=== PATIENT | female | born 1975 | race Caucasian/White ===

== ENCOUNTER 2018-10-29 15:39 | Emergency (ER) | payer MEDICAID ==
--- NOTE | 2018-10-29 16:59 | ER Document Report ---
ED Medical Screen (RME) - General Chief Complaint: Other Stated Complaint: MEDICATION REFILL Time Seen by Provider: 10/29/18 16:57 Primary Care Provider: JOANA ROY PA-C [Primary Care Provider] - Follow up as needed Notes: Patient is a 43-year-old female who presents to the emergency department because her daughter told her that her eyes were yellow and she wanted to get checked out. Patient states that she has been out of her medications for the past year. She was on spironolactone and retina medication. Exam: Sclera nonicteric. I have greeted and performed a rapid initial assessment of this patient. A comprehensive ED assessment and evaluation of the patient, analysis of test results and completion of medical decision making process will be conducted by an additional ED providers. TRAVEL OUTSIDE OF THE [place] IN LAST 30 DAYS: No - Related Data Allergies/Adverse Reactions: atomoxetine HCl [From Strattera] Allergy (Intermediate, Verified 10/29/18 15:43) unable to void ibuprofen Allergy (Mild, Verified 10/29/18 15:43) makes her gain wt and swell morphine [Morphine] Allergy (Mild, Verified 10/29/18 15:43) itching Past Medical History - Past Medical History Cardiac Medical History: Reports: Hx Hypertension Denies: Hx Coronary Artery Disease, Hx Heart Attack Pulmonary Medical History: Reports: Hx Pneumonia Denies: Hx Asthma, Hx Bronchitis, Hx COPD Neurological Medical History: Denies: Hx Cerebrovascular Accident, Hx Seizures Musculoskeltal Medical History: Reports Hx Arthritis - Immunizations Hx Diphtheria, Pertussis, Tetanus Vaccination: Yes Physical Exam - Vital signs Vitals: Temp Pulse Resp BP Pulse Ox 98.2 F 107 H 17 137/79 H 96 10/29/18 15:51 10/29/18 15:51 10/29/18 15:51 10/29/18 15:51 10/29/18 15:51 Course - Vital Signs Vital signs: Temp Pulse Resp BP Pulse Ox 98.2 F 107 H 17 137/79 H 96 10/29/18 15:51 10/29/18 15:51 10/29/18 15:51 10/29/18 15:51 10/29/18 15:51 Doctor's Discharge - Discharge Referrals: JOANA ROY PA-C [Primary Care Provider] - Follow up as needed
[2018-10-29 17:49] LABS: ABSOLUTE EOSINOPHILS # (AUTO) 0.2 10^3/uL (0.0-0.6); ABSOLUTE LYMPHOCYTES (AUTO) 1.4 10^3/uL (0.5-4.7); ABSOLUTE MONOCYTES (AUTO) 0.5 10^3/uL (0.1-1.4); ABSOLUTE NEUT (AUTO) 4.4 10^3/uL (1.7-8.2); BASOPHILS % (AUTO) 0.4 % (0-2); EOSINOPHILS % (AUTO) 2.7 % (0-6); HEMATOCRIT 43.5 % (36.0-47.0); HEMOGLOBIN 14.3 g/dL (12.0-15.5); LYMPHOCYTES % (AUTO) 21.4 % (13-45); MEAN CORPUSCULAR HEMOGLOBIN 31.3 pg (27.0-33.4); MEAN CORPUSCULAR HGB CONC 32.9 g/dL (32.0-36.0); MEAN CORPUSCULAR VOLUME 95 fl (80-97); PLATELET COUNT 362 10^3/uL (150-450); RED BLOOD COUNT 4.58 10^6/uL (3.72-5.28); RED CELL DISTRIBUTION WIDTH 12.6 % (11.5-14.0); SEGMENTED NEUTROPHILS % (AUTO) 67.5 % (42-78); TOTAL CELLS COUNTED % (AUTO) 100 %; WHITE BLOOD COUNT 6.5 10^3/uL (4.0-10.5)
[2018-10-29 18:08] LABS: ALKALINE PHOSPHATASE 72 U/L (38-126); ANION GAP 7 (5-19); ASPARTATE AMINO TRANSFERASE 15 U/L (14-36); BILIRUBIN,DIRECT 0.3 mg/dL (0.0-0.4); BILIRUBIN,TOTAL 0.3 mg/dL (0.2-1.3); BLOOD UREA NITROGEN 10 mg/dL (7-20); CARBON DIOXIDE 26 mmol/L (22-30); CHLORIDE 107 mmol/L (98-107); GLUCOSE 106 mg/dL (75-110); POTASSIUM 4.4 mmol/L (3.6-5.0); TOTAL PROTEIN 6.9 g/dL (6.3-8.2)
--- NOTE | 2018-10-29 20:56 | ER Document Report ---
ED General - General Chief Complaint: Other Stated Complaint: MEDICATION REFILL Time Seen by Provider: 10/29/18 16:57 Primary Care Provider: BRITTANY MESA MD [ACTIVE STAFF] - Follow up as needed Notes: Patient is a 43-year-old female that comes emergency department for chief complaint of running out of her medications. She states that she was waiting for her insurance to switch over, had to have them switch again, now she is waiting for a primary care referral, she is out of her Lasix, spironolactone, and Acetazolamide medications. She still has her potassium supplement which she is not currently taking, she still has her other medications which have not run out. She is also requesting primary care referral. She states became concerned because her daughter told her that her eyes look like they were yellow on the sides. She denies history of alcoholism or liver failure. She denies abdominal pain, nausea or vomiting, fever or chills. Denies any current complaints except for swelling on both feet. Past medical history includes pseudotumor cerebri, "fluid retention", a retinal disorder that she has been treated for since youth (she states she has an ophthalmology appointment in several days from now). She follows with [facility]. She has a ROVING HAND shunt. TRAVEL OUTSIDE OF THE [place] IN LAST 30 DAYS: No - Related Data Allergies/Adverse Reactions: atomoxetine HCl [From Strattera] Allergy (Intermediate, Verified 10/29/18 15:43) unable to void ibuprofen Allergy (Mild, Verified 10/29/18 15:43) makes her gain wt and swell morphine [Morphine] Allergy (Mild, Verified 10/29/18 15:43) itching Past Medical History - General Information source: Patient - Social History Smoking Status: Former Smoker Frequency of alcohol use: None Drug Abuse: None Lives with: Family Family History: Reviewed & Not Pertinent Patient has suicidal ideation: No Patient has homicidal ideation: No - Past Medical History Cardiac Medical History: Reports: Hx Hypertension Denies: Hx Coronary Artery Disease, Hx Heart Attack Pulmonary Medical History: Reports: Hx Pneumonia Denies: Hx Asthma, Hx Bronchitis, Hx COPD Neurological Medical History: Denies: Hx Cerebrovascular Accident, Hx Seizures Renal/ Medical History: Denies: Hx Peritoneal Dialysis Musculoskeletal Medical History: Reports Hx Arthritis Past Surgical History: Reports: Hx Neurologic Surgery - ROVING HAND shunt - Immunizations Hx Diphtheria, Pertussis, Tetanus Vaccination: Yes Review of Systems - Review of Systems Constitutional: No symptoms reported EENT: See HPI Cardiovascular: See HPI Respiratory: No symptoms reported Gastrointestinal: No symptoms reported Genitourinary: No symptoms reported Female Genitourinary: No symptoms reported Musculoskeletal: See HPI Skin: No symptoms reported Hematologic/Lymphatic: No symptoms reported Neurological/Psychological: No symptoms reported Physical Exam - Vital signs Vitals: Temp Pulse Resp BP Pulse Ox 98.2 F 107 H 17 137/79 H 96 10/29/18 15:51 10/29/18 15:51 10/29/18 15:51 10/29/18 15:51 10/29/18 15:51 - Notes Notes: GENERAL: Alert, interacts well. No acute distress. HEAD: Normocephalic, atraumatic. EYES: Pupils equal, round, and reactive to light. Extraocular movements intact. ENT: Oral mucosa moist, tongue midline. Oropharynx unremarkable. Airway patent. LUNGS: Clear to auscultation bilaterally, no wheezes, rales, or rhonchi. No respiratory distress. HEART: Regular rate and rhythm. No murmur ABDOMEN: Soft, non-tender. Non-distended. Bowel sounds present in all 4 quadrants. GENITOURINARY: Deferred EXTREMITIES: Moves all 4 extremities spontaneously. There is bilateral leg edema over the top of the feet and over the distal tibia, approximately 1+ and equal. Normal radial and dorsalis pedis pulses bilaterally. No cyanosis. BACK: no cervical, thoracic, lumbar midline tenderness. No saddle anesthesia, normal distal neurovascular exam. Moves all extremities in full range of motion. NEUROLOGICAL: Alert and oriented x3. Normal speech. Cranial nerves II through XII grossly intact. PSYCH: Normal affect, normal mood. SKIN: Warm, dry, normal turgor. No rashes or lesions noted. Course - Re-evaluation Re-evalutation: Patient is very well-appearing. She does have small amount of edema over her feet and distal extremities. This is equal. Lungs clear, no scleral icterus, she is talkative and otherwise well-appearing. She requests her diuretics. She will be placed initially on Lasix and Aceta Sulamyd, she will follow-up with primary care for recheck of her laboratory values and possible addition of spironolactone again. I discussed her CBC and chemistry, provided her with copies of these on request, discussed follow-up and return precautions. Patient states appreciation and agreement. - Vital Signs Vital signs: Temp Pulse Resp BP Pulse Ox 98.2 F 88 15 143/75 H 100 10/29/18 21:36 10/29/18 21:36 10/29/18 21:36 10/29/18 21:36 10/29/18 21:36 - Laboratory Result Diagrams: 10/29/18 17:35 10/29/18 17:35 Discharge - Discharge Clinical Impression: Has run out of medications Condition: Stable Disposition: HOME, SELF-CARE Additional Instructions: Your laboratory work-up is reassuring. Resume your normal medications, resume your potassium supplement with the furosemide. Follow-up with primary care referral listed, ophthalmology, and neurologist at [facility]. Return if you worsen including severe swelling of the legs, difficulty breathing, severe abdominal pain vomiting, severe headache, or any other concerning symptoms. Prescriptions: Acetazolamide [Acetazolamide ER] 500 mg PO BID #60 capsule.er Furosemide [Lasix 40 mg Tablet] 40 mg PO QAM #30 tablet Referrals: BRITTANY MESA MD [ACTIVE STAFF] - Follow up as needed
[2018-10-29 21:37] VITALS: BP 143/75
== END 2018-10-29 21:36 | disposition home or self-care (01) ==
LOC: ER 15:39
DX: Z76.0 Encounter for issue of repeat prescription (principal); I10 Essential (primary) hypertension; R60.0 Localized edema; T50.1X6A Underdosing of loop [high-ceiling] diuretics, initial encounter; T50.0X6A Underdosing of mineralocorticoids and their antagonists, initial encounter; T50.2X6A Underdosing of carbonic-anhydrase inhibitors, benzothiadiazides and other diuretics, initial encounter; Z91.128 Patient's intentional underdosing of medication regimen for other reason; Z91.14 Patient's other noncompliance with medication regimen; Z87.891 Personal history of nicotine dependence; Z79.899 Other long term (current) drug therapy
CPT/HCPCS: 36415; 80053; 85025; 99282

== ENCOUNTER 2019-02-03 14:39 | Emergency (ER) | payer MEDICAID ==
[2019-02-03] MEDS ORDERED: NORMAL SALINE 1000 ML 1,000 ML IV ONE (15:29)
[2019-02-03] MEDS ORDERED: HYDROMORPHONE HCL INJ/PF 2 MG/ML AMPULE IV ONE ×3 (15:39→17:02)
[2019-02-03] MEDS ORDERED: ONDANSETRON HCL INJ/PF 4 MG/2 ML SDV IV ONE (15:39)
[2019-02-03 15:49] LABS: ABSOLUTE LYMPHOCYTES (AUTO) 0.8 10^3/uL (0.5-4.7); ABSOLUTE MONOCYTES (AUTO) 0.5 10^3/uL (0.1-1.4); ABSOLUTE NEUT (AUTO) 10.8 10^3/uL (1.7-8.2); BASOPHILS % (AUTO) 0.2 % (0-2); EOSINOPHILS % (AUTO) 0.3 % (0-6); HEMOGLOBIN 14.1 g/dL (12.0-15.5); LYMPHOCYTES % (AUTO) 6.6 % (13-45); MEAN CORPUSCULAR HEMOGLOBIN 31.2 pg (27.0-33.4); MEAN CORPUSCULAR HGB CONC 33.6 g/dL (32.0-36.0); MEAN CORPUSCULAR VOLUME 93 fl (80-97); MONOCYTES % (AUTO) 4.4 % (3-13); PLATELET COUNT 331 10^3/uL (150-450); RED BLOOD COUNT 4.52 10^6/uL (3.72-5.28); RED CELL DISTRIBUTION WIDTH 12.7 % (11.5-14.0); SEGMENTED NEUTROPHILS % (AUTO) 88.5 % (42-78); TOTAL CELLS COUNTED % (AUTO) 100 %; WHITE BLOOD COUNT 12.2 10^3/uL (4.0-10.5)
[2019-02-03 15:54] LABS: ALBUMIN 3.9 g/dL (3.5-5.0); ALKALINE PHOSPHATASE 77 U/L (38-126); ANION GAP 12 (5-19); ASPARTATE AMINO TRANSFERASE 13 U/L (14-36); BILIRUBIN,DIRECT 0.1 mg/dL (0.0-0.4); BILIRUBIN,TOTAL 0.3 mg/dL (0.2-1.3); BLOOD UREA NITROGEN 12 mg/dL (7-20); CARBON DIOXIDE 19 mmol/L (22-30); CHLORIDE 112 mmol/L (98-107); GLUCOSE 117 mg/dL (75-110); POTASSIUM 3.7 mmol/L (3.6-5.0); TOTAL PROTEIN 6.7 g/dL (6.3-8.2)
[2019-02-03 16:03] LABS: AMORPHOUS SEDIMENT,URINE TRACE /HPF; APPEARANCE,URINE TURBID; BILIRUBIN,URINE NEGATIVE (NEGATIVE); COLOR,URINE YELLOW; GLUCOSE, URINE NEGATIVE (NEGATIVE); KETONES,URINE TRACE mg/dL (NEGATIVE); LEUKOCYTE ESTERASE,URINE SMALL (NEGATIVE); NITRITE,URINE NEGATIVE (NEGATIVE); PROTEIN,URINE 100 mg/dL (NEGATIVE); URINE SPECIFIC GRAVITY 1.036; UROBILINOGEN,URINE NEGATIVE mg/dL (<2.0)
--- NOTE | 2019-02-03 16:22 | ER Document Report ---
ED General - General Chief Complaint: Flank Pain Stated Complaint: FLANK PAIN Time Seen by Provider: 02/03/19 15:09 TRAVEL OUTSIDE OF THE [place] IN LAST 30 DAYS: No - HPI Notes: 43-year-old female to the emergency department with complaints of right flank pain that has gotten worse over the past 24 hours. She states that for 2 to 3 days prior to the flank pain starting she was experiencing some bladder discomfort. She states that she is on Lasix for pseudotumor cerebri and says she urinates all the time. She cannot tell if she is urinating more frequently than normal. She states that the pain comes from her right kidney region down into her right pelvic region. She denies any hematuria. She admits to nausea but no vomiting. She states that she was given Toradol and Zofran with the medics which did help take the edge off of her pain. However, the pain still persists. - Related Data Allergies/Adverse Reactions: atomoxetine HCl [From Strattera] Allergy (Intermediate, Verified 10/29/18 15:43) unable to void ibuprofen Allergy (Mild, Verified 10/29/18 15:43) makes her gain wt and swell morphine [Morphine] Allergy (Mild, Verified 10/29/18 15:43) itching Past Medical History - General Information source: Patient - Social History Smoking Status: Current Some Day Smoker Chew tobacco use (# tins/day): No Frequency of alcohol use: Occasional Drug Abuse: None Family History: Reviewed & Not Pertinent Patient has suicidal ideation: No Patient has homicidal ideation: No - Past Medical History Cardiac Medical History: Reports: Hx Hypertension Denies: Hx Coronary Artery Disease, Hx Heart Attack Pulmonary Medical History: Reports: Hx Pneumonia Denies: Hx Asthma, Hx Bronchitis, Hx COPD Neurological Medical History: Denies: Hx Cerebrovascular Accident, Hx Seizures Renal/ Medical History: Denies: Hx Peritoneal Dialysis Musculoskeletal Medical History: Reports Hx Arthritis Past Surgical History: Reports: Hx Section, Hx Cholecystectomy, Hx Neurologic Surgery - PREVENTIVE 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 denies: Diarrhea, Vomiting Genitourinary: Flank pain. denies: Hematuria Female Genitourinary: No symptoms reported Musculoskeletal: No symptoms reported Skin: No symptoms reported Hematologic/Lymphatic: No symptoms reported Neurological/Psychological: No symptoms reported -: Yes All other systems reviewed and negative Physical Exam - Vital signs Vitals: Temp Pulse Resp BP Pulse Ox 98.0 F 64 20 145/80 H 99 02/03/19 14:53 02/03/19 14:53 02/03/19 14:53 02/03/19 14:53 02/03/19 14:53 Interpretation: Hypertensive - General General appearance: Appears well, Alert In distress: None - HEENT Head: Normocephalic, Atraumatic Eyes: Normal Pupils: PERRL - Respiratory Respiratory status: No respiratory distress Chest status: Nontender Breath sounds: Normal Chest palpation: Normal - Cardiovascular Rhythm: Regular Heart sounds: Normal auscultation Murmur: No - Abdominal Inspection: Morbidly Obese Distension: No distension Bowel sounds: Normal Tenderness: Tender - + TTP over the RLQ, RUQ, and right CVA. negative McBurney's point, negative Serrano's sign. No rebound or guarding. 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 Noted 4 mm stone at the UVJ. Will discharge home and have patient follow up with urology. Encouraged to return if symptoms worsening such as intractable abd pain or vomiting, or fevers. Patient and parents who are bedside agree with the plan. - Vital Signs Vital signs: Temp Pulse Resp BP Pulse Ox 98.0 F 64 20 145/80 H 99 02/03/19 14:53 02/03/19 14:53 02/03/19 14:53 02/03/19 14:53 02/03/19 14:53 - Laboratory Result Diagrams: 02/03/19 15:20 02/03/19 15:20 Laboratory results interpreted by me: 02/03/19 02/03/19 02/03/19 15:20 15:20 15:36 WBC 12.2 H Lymph % (Auto) 6.6 L Absolute Neuts (auto) 10.8 H Seg Neutrophils % 88.5 H Chloride 112 H Carbon Dioxide 19 L Est GFR (MDRD) Non-Af 57 L Glucose 117 H AST 13 L Urine Protein 100 H Urine Ketones TRACE H Urine Blood LARGE H Ur Leukocyte Esterase SMALL H Urine Ascorbic Acid 20 H - Diagnostic Test Radiology reviewed: Reports reviewed Discharge - Discharge Clinical Impression: Kidney stone, Right flank pain Condition: Stable Disposition: HOME, SELF-CARE Instructions: Kidney Stone (OM) Additional Instructions: PUSH FLUIDS. TAKE MEDICINES PRESCRIBED. RETURN IF WORSE OR INTRACTABLE PAIN/VOMITING, FEVERS. FOLLOW UP WITH UROLOGY. Prescriptions: Ketorolac Tromethamine [Toradol 10 mg Tablet] 10 mg PO Q6HP PRN #20 tablet PRN Reason: Oxycodone HCl/Acetaminophen [Percocet 5-325 mg Tablet] 1 tab PO Q6H PRN #10 tab PRN Reason: Promethazine HCl [Phenergan 25 mg Tablet] 25 mg PO Q6H #20 tablet Referrals: CARLOS BARNARD NP [Primary Care Provider] - Follow up in 1 week CHAVO SANTAMARIA MD [NO LOCAL MD] - Follow up in 1 week (for urology follow up)
[2019-02-03] MEDS ORDERED: HYDROMORPHONE HCL INJ/PF 2 MG/ML AMPULE ONE (16:50)
--- NOTE | 2019-02-03 16:56 | RADIOLOGY REPORT (SQ) ---
EXAM DESCRIPTION: CT ABD/PELVIS NO ORAL OR IV COMPLETED DATE/TIME: 02/03/2019 4:02 pm REASON FOR STUDY: right flank pain COMPARISON: None. TECHNIQUE: CT scan of the abdomen and pelvis performed without intravenous or oral contrast. Images reviewed with lung, soft tissue, and bone windows. Reconstructed coronal and sagittal MPR images revi ewed. All images stored on PACS. All CT scanners at this facility use dose modulation, iterative reconstruction, and/or weight based d osing when appropriate to reduce radiation dose to as low as reasonably achievable (ALARA). [facility]: Dose Right [facility]: CareDose [facility]: Dose Right [facility]: Teradose 4D [facility]: [employer] RADIATION DOSE: CT Rad equipment meets quality standard of care and radiation dose reduction techniq ues were employed. CTDIvol: 16.4 mGy. DLP: 861 mGy-cm.mGy. LIMITATIONS: None. FINDINGS: LOWER CHEST: No abnormality PE NON-CONTRASTED LIVER, SPLEEN, ADRENALS: LIVER: No abnormality. SPLEEN: No abnormality. ADRENALS: No abnormality. PANCREAS: No abnormality. GALLBLADDER: Status post cholecystectomy. 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 Minimal inflammatory ch anges surround the right kidney. LEFT KIDNEY AND URETER: No abnormality. . AORTA AND RETROPERITONEUM: No aneurysm. No retroperitoneal masses or adenopathy. BOWEL AND PERITONEAL CAVITY: No obvious masses or inflammatory changes. No free fluid. APPENDIX: No abnormality seen. PELVIS, BLADDER, AND ABDOMINAL WALL:URINARY BLADDER: Decompressed. There is a 4 x 4mm calculus exte nding into the urinary bladder at the right UV junction. ABDOMINAL WALL: Umbilical hernia containin g fat. UTERUS: No abnormality. BONES: Minimal lumbar spondylosis. OTHER: There is a shunt tube noted overlying the mid chest extending into the right lower abdomen and pelvis. Small amount ascites noted within the pelvis IMPRESSION: 4 mm calculus extending into the urinary bladder at the right UV junction with associate d ectasia of right upper collecting system and right ureter. 2. Peritoneal shunt tube coiled within pelvis. Small amount of ascites. 3. Umbilical hernia containing fat. COMMENT: Quality ID # [id number]: Final reports with documentation of one or more dose reduction techniques (e.g., Automated exposure control, adjustment of the mA and/or kV according to patient size, use of iterative reconstruction technique) TECHNICAL DOCUMENTATION: JOB ID: [id number] SC-69 2010 [employer]- All Rights Reserved Reading location - IP/workstation name: [email or web address]
[2019-02-03] MEDS ORDERED: PROMETHAZINE HCL INJ 25 MG/1 ML VIAL IV ONE (17:07)
[2019-02-03 18:45] VITALS: BP 141/88
== END 2019-02-03 18:46 | disposition home or self-care (01) ==
LOC: ER 14:39
DX: N20.0 Calculus of kidney (principal); R10.9 Unspecified abdominal pain; R11.0 Nausea; R35.0 Frequency of micturition; E66.01 Morbid (severe) obesity due to excess calories; F17.200 Nicotine dependence, unspecified, uncomplicated; I10 Essential (primary) hypertension; Z88.6 Allergy status to analgesic agent; Z90.49 Acquired absence of other specified parts of digestive tract; Z98.2 Presence of cerebrospinal fluid drainage device
CPT/HCPCS: 36415; 83690; 85025; 81025; 80053; 81001; 74176; J1170; J2550; J2405; J7030; 96361; 96374; 96375; 96376; 99284

== ENCOUNTER 2019-09-10 19:46 | Emergency (ER) | payer MEDICAID, OTHER ==
--- NOTE | 2019-09-10 20:33 | ER Document Report ---
ED Medical Screen (RME) - General Chief Complaint: Suicidal Ideation Stated Complaint: IVC Time Seen by Provider: 09/10/19 20:26 Primary Care Provider: CARLOS BARNARD NP [Primary Care Provider] - Follow up as needed Mode of Arrival: Ambulatory Information source: Law Enforcement Notes: 44-year-old female presented to ED for IVC for thoughts of suicide. She went an d saw her mental health provider for refill of her medications when she has had some things that made the mental health provider concerned. The mental health provider took out IVC paperwork on her. I asked the patient had she thought of harming herself. She states that after the placement and not nocturnal door when he what did she would been planning to hang herself. I have greeted and performed a rapid initial assessment of this patient. A comprehensive ED assessment and evaluation of the patient, analysis of test results and completion of medical decision making process will be conducted by an additional ED providers. TRAVEL OUTSIDE OF THE [place] IN LAST 30 DAYS: No - Related Data Allergies/Adverse Reactions: atomoxetine HCl [From Strattera] Allergy (Intermediate, Verified 09/10/19 20:15) unable to void ibuprofen Allergy (Mild, Verified 09/10/19 20:15) makes her gain wt and swell morphine [Morphine] Allergy (Mild, Verified 09/10/19 20:15) itching Home Medications: SEVERAL CHRONIC CONDITIONS Past Medical History - Social History Frequency of alcohol use: Heavy Drug Abuse: Marijuana - Past Medical History Cardiac Medical History: Reports: Hx Hypertension Denies: Hx Coronary Artery Disease, Hx Heart Attack Pulmonary Medical History: Reports: Hx Pneumonia Denies: Hx Asthma, Hx Bronchitis, Hx COPD Neurological Medical History: Denies: Hx Cerebrovascular Accident, Hx Seizures Renal/ Medical History: Denies: Hx Peritoneal Dialysis Musculoskeltal Medical History: Reports Hx Arthritis Past Surgical History: Reports: Hx Section, Hx Cholecystectomy, Hx Neurologic Surgery - 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
[2019-09-10 21:02] LABS: ABSOLUTE BASOPHILS # (AUTO) 0.1 10^3/uL (0.0-0.2); ABSOLUTE EOSINOPHILS # (AUTO) 0.3 10^3/uL (0.0-0.6); ABSOLUTE LYMPHOCYTES (AUTO) 2.2 10^3/uL (0.5-4.7); ABSOLUTE MONOCYTES (AUTO) 0.5 10^3/uL (0.1-1.4); BASOPHILS % (AUTO) 0.7 % (0-2); EOSINOPHILS % (AUTO) 4.7 % (0-6); HEMATOCRIT 42.6 % (36.0-47.0); HEMOGLOBIN 14.1 g/dL (12.0-15.5); LYMPHOCYTES % (AUTO) 30.7 % (13-45); MEAN CORPUSCULAR HEMOGLOBIN 29.9 pg (27.0-33.4); MEAN CORPUSCULAR HGB CONC 33.2 g/dL (32.0-36.0); MEAN CORPUSCULAR VOLUME 90 fl (80-97); PLATELET COUNT 334 10^3/uL (150-450); RED BLOOD COUNT 4.72 10^6/uL (3.72-5.28); RED CELL DISTRIBUTION WIDTH 13.2 % (11.5-14.0); SEGMENTED NEUTROPHILS % (AUTO) 56.9 % (42-78); TOTAL CELLS COUNTED % (AUTO) 100 %
--- NOTE | 2019-09-10 21:12 | ER Document Report ---
ED Psych Disorder / Suicide - General Chief Complaint: Suicidal Ideation Stated Complaint: IVC Time Seen by Provider: 09/10/19 20:26 Primary Care Provider: CARLOS BARNARD NP [Primary Care Provider] - Follow up as needed Mode of Arrival: Ambulatory Notes: Patient is a 44-year-old female that comes to the emergency department for chief complaint of suicidal ideations and statements. Patient does state that she saw her psychiatrist this morning, they became concerned when she told them that she was depressed with intentions of either cutting herself, hanging herself, or both. She states that she does not want to give any more detail at this time and she is "done with talking about it for right now". She states she does have history of depression, anxiety, and self-harm. Patient states she also has a history of pseudotumor cerebri, she has a UPP[employer]URN[employer]ER shunt, she does follow with [facility]. She states she has a headache currently but this is her typical headache and nothing out of the ordinary. She denies vision changes, vomiting, fever, or any other symptoms. She states she has been compliant with home medications "but they are not working". TRAVEL OUTSIDE OF THE [place] IN LAST 30 DAYS: No - Related Data Allergies/Adverse Reactions: atomoxetine HCl [From Strattera] Allergy (Intermediate, Verified 09/10/19 20:15) unable to void ibuprofen Allergy (Mild, Verified 09/10/19 20:15) makes her gain wt and swell morphine [Morphine] Allergy (Mild, Verified 09/10/19 20:15) itching Home Medications: SEVERAL CHRONIC CONDITIONS Past Medical History - General Information source: Law Enforcement - Social History Smoking Status: Former Smoker Frequency of alcohol use: Heavy Drug Abuse: Marijuana Family History: Reviewed & Not Pertinent Patient has homicidal ideation: No - Past Medical History Cardiac Medical History: Reports: Hx Hypertension Denies: Hx Coronary Artery Disease, Hx Heart Attack Pulmonary Medical History: Reports: Hx Pneumonia Denies: Hx Asthma, Hx Bronchitis, Hx COPD Neurological Medical History: Denies: Hx Cerebrovascular Accident, Hx Seizures Renal/ Medical History: Denies: Hx Peritoneal Dialysis Musculoskeletal Medical History: Reports Hx Arthritis Past Surgical History: Reports: Hx Section, Hx Cholecystectomy, Hx Neurologic Surgery - UPP[employer] shunt, Hx Orthopedic Surgery - left ankle x 2 - Immunizations Hx Diphtheria, Pertussis, Tetanus Vaccination: Yes Review of Systems - Review of Systems Constitutional: No symptoms reported EENT: No symptoms reported Cardiovascular: No symptoms reported Respiratory: No symptoms reported Gastrointestinal: No symptoms reported Genitourinary: No symptoms reported Female Genitourinary: No symptoms reported Musculoskeletal: No symptoms reported Skin: No symptoms reported Hematologic/Lymphatic: No symptoms reported Neurological/Psychological: See HPI Physical Exam - Vital signs Vitals: Temp Pulse Resp BP Pulse Ox 98.5 F 95 20 150/90 H 99 09/10/19 19:53 09/10/19 19:53 09/10/19 19:53 09/10/19 19:53 09/10/19 19:53 - Notes Notes: GENERAL: Alert, interacts, does not appear to be in distress HEAD: Normocephalic, atraumatic. EYES: Pupils equal, round, and reactive to light. Extraocular movements intact. ENT: Oral mucosa moist, tongue midline. Oropharynx unremarkable. Airway patent. Nares patent, sinuses non-tender, ear canals unremarkable, TM's intact. NECK: Full range of motion. Supple. Trachea midline. No lymphadenopathy. LUNGS: Clear to auscultation bilaterally, no wheezes, rales, or rhonchi. No respiratory distress. Non-tender chest wall. HEART: Regular rate and rhythm. No murmur ABDOMEN: Soft, non-tender. Non-distended. Bowel sounds present in all 4 quadrants. GENITOURINARY: Deferred EXTREMITIES: Moves all 4 extremities spontaneously. No edema, normal radial and dorsalis pedis pulses bilaterally. No cyanosis. BACK: no cervical, thoracic, lumbar midline tenderness. No saddle anesthesia, normal distal neurovascular exam. Moves all extremities in full range of motion. NEUROLOGICAL: Alert and oriented x3. Normal speech. Cranial nerves II through XII grossly intact. Strength 5/5 in all extremities. PSYCH: Patient makes poor eye contact, has a slightly flat affect, makes frequent negative statements and tries to cut conversation short. Does not appear to be responding to internal stimuli. SKIN: Warm, dry, normal turgor. No rashes or lesions noted. Course - Re-evaluation Re-evalutation: 09/10/19 21:13 Patient already presents to the emergency department with IVC paperwork completed, she will remain on IVC paperwork because she does again repeat that s he is depressed and considering both cutting and hanging herself. Physical exam unremarkable, patient is alert, well-appearing, vital signs show borderline hypertension but otherwise unremarkable. 09/10/19 22:05 We were able to obtain a list of patient's current medications along with her paperwork. She is on Klonopin scheduled and she will be continued on this to avoid withdrawal seem to help with her symptoms. She is also on Wellbutrin and lithium, lithium level be checked. Patient requesting symptomatic Tylenol for her baseline headache. CBC, chemistry unremarkable, urine drug screen showing only marijuana, alcohol unremarkable, EKG unremarkable. I reevaluated patient and she was sleeping peacefully. Patient is medically cleared pending mental health team evaluation. - Vital Signs Vital signs: Temp Pulse Resp BP Pulse Ox 98.5 F 95 20 150/90 H 99 09/10/19 20:16 09/10/19 19:53 09/10/19 19:53 09/10/19 19:53 09/10/19 19:53 - Laboratory Result Diagrams: 09/10/19 20:32 09/10/19 20:32 Laboratory results interpreted by me: 09/10/19 09/10/19 09/10/19 20:32 20:32 20:32 Chloride 109 H Urine Protein 100 H Urine Ketones TRACE H Urine Blood LARGE H Ur Leukocyte Esterase TRACE H Salicylates < 1.0 L Acetaminophen < 10 L [place] < 0.2 L - EKG Interpretation by Me Additional EKG results interpreted by me: EKG shows sinus rhythm at a rate of 79, QTc 427, normal axis. No T wave inversions or ST segment changes in consecutive leads. Somewhat low voltage throughout. Discharge - Discharge Clinical Impression: Suicidal ideations Depression Qualifiers: Depression Type: unspecified Qualified Code(s): F32.9 - Major depressive disorder, single episode, unspecified Condition: Stable Disposition: PSYCH HOSP/UNIT Referrals: CARLOS BARNARD NP [Primary Care Provider] - Follow up as needed
[2019-09-10 21:17] LABS: APPEARANCE,URINE CLOUDY; BILIRUBIN,URINE NEGATIVE (NEGATIVE); COLOR,URINE AMBER; GLUCOSE, URINE NEGATIVE (NEGATIVE); KETONES,URINE TRACE mg/dL (NEGATIVE); LEUKOCYTE ESTERASE,URINE TRACE (NEGATIVE); NITRITE,URINE NEGATIVE (NEGATIVE); PROTEIN,URINE 100 mg/dL (NEGATIVE); URINE SPECIFIC GRAVITY 1.028; UROBILINOGEN,URINE NEGATIVE mg/dL (<2.0)
[2019-09-10 21:23] LABS: ALBUMIN 4.2 g/dL (3.5-5.0); ALKALINE PHOSPHATASE 82 U/L (38-126); ANION GAP 5 (5-19); ASPARTATE AMINO TRANSFERASE 17 U/L (14-36); BILIRUBIN,TOTAL 0.3 mg/dL (0.2-1.3); BLOOD UREA NITROGEN 10 mg/dL (7-20); CARBON DIOXIDE 24 mmol/L (22-30); CHLORIDE 109 mmol/L (98-107); GLUCOSE 96 mg/dL (75-110); POTASSIUM 4.1 mmol/L (3.6-5.0); TOTAL PROTEIN 7.2 g/dL (6.3-8.2)
[2019-09-10 21:25] LABS: URINE AMPHETAMINES SCREEN NEGATIVE; URINE BARBITURATES SCREEN NEGATIVE; URINE BENZODIAZEPINES SCREEN NEGATIVE; URINE COCAINE SCREEN NEGATIVE; URINE METHADONE SCREEN NEGATIVE; URINE PHENCYCLIDINE SCREEN NEGATIVE
[2019-09-10 21:29] LABS: ACETAMINOPHEN < 10 ug/mL (10-30); ALCOHOL < 10 mg/dL (NONE DETECTED); SALICYLATE < 1.0 mg/dL (2.0-20.0)
[2019-09-10 21:30] LABS: URINE MARIJUANA (THC) SCREEN UNCONFIRMED POSITIVE
[2019-09-10] MEDS ORDERED: ACETAMINOPHEN 325 MG TABLET PO ONE (21:31)
[2019-09-10] MEDS ORDERED: CYCLOBENZAPRINE HCL 10 MG TABLET PO ONE (21:31)
--- NOTE | 2019-09-10 21:34 | EKG REPORT ---
SEVERITY:- ABNORMAL ECG - SINUS OR ECTOPIC ATRIAL RHYTHM LEFT ATRIAL ABNORMALITY LOW VOLTAGE THROUGHOUT : Confirmed by: Steve Teresa MD 10-Sep-2019 21:34:01
[2019-09-10] MEDS ORDERED: CLONAZEPAM 1 MG TABLET PO ONE (22:00)
[2019-09-11] MEDS ORDERED: HALOPERIDOL 5 MG TABLET PO ONE (00:23)
[2019-09-11] MEDS ORDERED: FUROSEMIDE 40 MG TABLET PO SCH (17:15)
[2019-09-11] MEDS ORDERED: SPIRONOLACTONE 25 MG TABLET PO SCH (17:15)
--- NOTE | 2019-09-11 17:21 | ER Document Report ---
Doctor's Note Notes: 09/11/19 17:19 Patient's vital signs and previous labs, diagnostic images reviewed. Reviewed mental health notes, nurse's notes and previous providers notes. VSS. Pt is in no distress at this time. Denies any SI or HI. Called local pharmacy and had patient's medications reviewed and put in the system to start. Awaiting for mental health medication recommendations. Waiting for urine culture General: A&Ox3. Answers questions appropriately. Heart: RRR Lungs: CTAB Psych: Flat affect A/P: Continue monitoring and rec's per MH. Normal diet Consider placement. 09/11/19 17:21
[2019-09-11] MEDS ORDERED: POTASSIUM CHLORIDE 10 MEQ TABLET.ER PO SCH (18:00)
[2019-09-11] MEDS ORDERED: PANTOPRAZOLE SODIUM 20 MG TABLET.DR PO SCH (18:00)
[2019-09-11] MEDS ORDERED: METHOCARBAMOL 500 MG TABLET PO SCH (18:00)
[2019-09-11] MEDS ORDERED: ACETAZOLAMIDE 500 MG CAPSULE.SA PO SCH (18:00)
[2019-09-11] MEDS ORDERED: CLONAZEPAM 1 MG TABLET PO ONE (20:54)
--- NOTE | 2019-09-11 22:01 | PSYCHOLOGICAL NOTE ---
Psych Note - Psych Note Date seen by psych provider: 09/11/19 Time seen by psych provider: 11:47 - [id number] Psych Note: Presenting Problem: Patient is a 44 year old female who presented to the [facility] ED last evening via [facility], petitioned for IVC by her outpatient medication provider Tameka at [facility] for suicidal ideation with plans to cut or hang self. Patient identified "I want to go home." When asked why she was in the ED she stated "police came to my house to get me after my appointment with my psychiatrist, I told her I didn't want to live anymore, and when police came I had a Noose hanging from the ceiling." She avoided answering about current SI and would answer with "at this moment I just want to go home, I feel like a rat in a cage, I'm calm today, I'm not thinking bad thoughts." She denied previous MH hospitalizations and said "no I just dealt with it." She stated COVID has not been stressful as she is a homebody and loner anyway. She stated her family is not close knit and she doesn't like having people over. Patient stated "these are feelings I always have, I hated myself yesterday, I still do, I will til the day I , I don't want to be here." She stated "the feeling never leaves, it's still there." She admitted to drinking beer at times, most recent was last month. Patient at first stated her medication weren't working and she tried to tell her doctor, then later after being told she was staying IVC and placement was being sought she commented "I ran out of medication and with COVID it was hard to see a provider or get to the pharmacy." She identified "I get immune to medication quickly." She reported being prescribed Wellbutrin, Adderall (for my ADHD), Klonopin and something for sleep/insomnia by Tameka at [facility]. UDS was negative for everything with the exception of cannabis. 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 She reported seasonal allergies and IBC Constipation (takes O-T-C medication for it). She stated "therapy is not my things, it's stupid, talk things out does nothing, my therapy is crying or breaking something, neither of those hurt myself." Patient asked about her medical medications and had concerns for not being administered them already. She noted her daughter and her grandmother (said she basically lived in an [facility]) having MH histories. Patient was alert and oriented to self, person, place, time and situation. Mood was labile (irritable, euthymic, depressed) with congruent affect, however often flat. She denied current SI/HI, admitted to thoughts and action taken yesterday (had a noose hanging from ceiling when LE arrived to her home) and stated she always has thoughts. Patient did not appear to be responding to internal stimuli as evidenced by fair eye contact and answering questions appropriately when addressed. Thought processes were linear. Conversational speech was within normal limits for rate, tone and prosody. Intellectual abilities are estimated to be average. Insight, judgment and impulse control were poor as evidenced by patient minimizing her thoughts that led her to take action to hand a noose from her ceiling. Clinical Presentation: Suicidal Ideation with plan to hang self, took action to hang noose from ceiling Cluster B traits Diagnosis: Depression R/O Bipolar Disorder Impression/Plan: Recommendation to maintain FULL IVC from [facility] given Suicidal Ideation that led to her hanging a noose from her ceiling. Patient later stated she had not been taking her medications due to COVID and difficulty seeing provider/ getting prescriptions after first saying they weren't effective. She was accepted to [facility] and will move forward with that placement. Consulted with Dr. Cartagena regarding the management and care of patient. ED Physician in agreement with recommendations.
--- NOTE | 2019-09-12 09:00 | ER Document Report ---
Doctor's Note Notes: 09/12/19 09:00 [facility] - [facility] at the bedside to transfer the patient to [facility]. Patient is aware of transfer status and denies questions at this time. Patient in no acute distress.
[2019-09-12 09:01] VITALS: BP 147/83
== END 2019-09-12 09:06 ==
LOC: ER 19:46
DX: F32.9 Major depressive disorder, single episode, unspecified (principal); R45.851 Suicidal ideations; Z88.8 Allergy status to other drugs, medicaments and biological substances; I10 Essential (primary) hypertension; Z87.891 Personal history of nicotine dependence; Z20.828 Contact with and (suspected) exposure to other viral communicable diseases
CPT/HCPCS: 93005; 99285; 36415; 87086; 80307 ×4; 80178; 84703; 85025; 87635; 80053; 81001; 93010; J3490 ×9; C9803

== ENCOUNTER → 2019-10-25 | Day surgery (SDC) | payer MEDICAID ==
[~2019-10-25] MED LIST: LIDOCAINE 2% INJ (20 MG/ML) 20 ML MDV ONE
--- NOTE | 2019-11-07 08:41 | WOMENS IMAGING REPORT ---
EXAM DESCRIPTION: U/S BREAST BX; LEFT DIAGNOSTIC MAMMO W/CAD IMAGES COMPLETED DATE/TIME: 11/02/2019 11:01 am; 10/30/2019 8:43 am REASON FOR STUDY: N63.21 UNSPECIFIED LUMP IN THE LEFT BREAST, UPPER OUTER QUADRANT; N63.21 S/P US LE FT BREAST BX FOR CLIP PLACEMENT N63.21 UNSPECIFIED LUMP IN THE LEFT BREAST, UPPER OUTER QUAD COMPARISON: None. TECHNIQUE: The procedure was discussed with the patient and the patient agreed to proceed. The patient was scanned and the area of interest in the 2 o'clock positionof the left breast was loca lized. This correlates with the area of concern on prior imaging studies. This area was targeted for ultrasound-guided core biopsy. After sterile skin prep and 2 mL local lidocaine 1 % skin and deep tissue anesthesia, a 14 gauge core biopsy needle was used to obtain several cores of tissue from the lesion. Under ultrasound guidance , a Ribbon clip was placed in the areas sampled. There were no immediate post-procedure complication s. MAMMOGRAM: Post-procedure two view mammogram was acquired in the digital mammogram suite. The clip wa s in the expected location. No significant hematoma. Pathology yields a diagnosis of sclerosing adenosis intraductal papilloma. Pathology is concordant. LIMITATIONS: None. FINDINGS: Ultrasound guided breast biopsy as described above. POST PROCEDURE MAMMOGRAMS FOR MARKER PLACEMENT: Yes IMPRESSION: ULTRASOUND-GUIDED CORE BIOPSY OF THE LEFT BREAST YIELDS A DIAGNOSIS OF SCLEROSING ADENOS IS INTRADUCTAL PAPILLOMA. COMMENT: BI-RADS 2 COMMUNICATION: The patient's provider has been notified of the findings. The provider will discuss th e findings with the patient. Patient medication list reviewed: Yes- Quality ID# [id number]:Eligible professional attests to documenting i n the medical record they obtained, updated, or reviewed the patient's current medications. TECHNICAL DOCUMENTATION: JOB ID: [id number] 2010 [employer]- All Rights Reserved Reading location - IP/workstation name: [email or web address]
== END ==
LOC: WI 13:00
PROVIDERS: ATTEND Nurse Practitioner
DX: N60.22 Fibroadenosis of left breast (principal); D24.2 Benign neoplasm of left breast
CPT/HCPCS: 88342 ×2; 88341 ×2; 88305 ×2; 19083; 77065; J3490